=== PATIENT | female | born 1940 | race American Indian/Alaskan Native ===

== ENCOUNTER 2017-11-13 13:29 | Outpatient (CLI) | payer MEDICARE ==
[2017-11-13 15:23] LABS: Calcium 9.6 mg/dL (8.4-10.2); Uric Acid 7.4 mg/dL (3.5-7.6)
== END 2017-11-13 13:30 | disposition home or self-care (01) ==
LOC: LAB 13:29
DX: R94.4 Abnormal results of kidney function studies (principal)
CPT/HCPCS: 36415; 80048; 82040; 84100; 84550

== ENCOUNTER 2018-07-17 11:39 | Outpatient (CLI) | payer MEDICARE ==
[2018-07-17 12:05] LABS: Hematocrit 38.1 % (30.3-42.9); Hemoglobin 12.6 gm/dl (10.1-14.3); Mean Corpuscular HGB Conc 33 % (30-34); Mean Corpuscular Volume 89 fl (79-97); Platelet Count 211 K/mm3 (140-440); Red Blood Count 4.27 M/mm3 (3.65-5.03)
[2018-07-17 12:25] LABS: Calcium 9.9 mg/dL (8.4-10.2)
[2018-07-17 12:55] LABS: Creatinine,Urine 65.2 mg/dL (0.1-20.0); Microalbumin/Creatinine Ratio 18.4 ug/mg
[2018-07-17 12:57] LABS: Bilirubin,Urine NEG (Negative); Blood,Urine NEG (Negative); Color,Urine Yellow (Yellow); Protein,Urine <15 mg/dL mg/dL (Negative); Urobilinogen,Urine < 2.0 mg/dL (<2.0)
== END 2018-07-17 11:40 | disposition home or self-care (01) ==
LOC: LAB 11:39
PROVIDERS: ATTEND Internal Medicine Nephrology
DX: R94.4 Abnormal results of kidney function studies (principal); I10 Essential (primary) hypertension; I42.9 Cardiomyopathy, unspecified; R60.0 Localized edema; Z79.4 Long term (current) use of insulin
CPT/HCPCS: 36415; 80048; 81001; 82040; 82043; 84100; 85027

== ENCOUNTER 2018-11-27 10:31 | Outpatient (CLI) | payer MEDICARE ==
[2018-11-27 11:01] LABS: Hematocrit 36.8 % (30.3-42.9); Hemoglobin 12.1 gm/dl (10.1-14.3); Mean Corpuscular HGB Conc 33 % (30-34); Mean Corpuscular Volume 90 fl (79-97); Platelet Count 216 K/mm3 (140-440); Red Blood Count 4.09 M/mm3 (3.65-5.03); Red Cell Distribution Width 13.2 % (13.2-15.2)
[2018-11-27 11:23] LABS: Calcium 9.5 mg/dL (8.4-10.2)
[2018-11-27 17:01] LABS: Creatinine,Urine 47.7 mg/dL (0.1-20.0); Protein/Creatinine Ratio,Urine 0.21
== END 2018-11-27 10:32 | disposition home or self-care (01) ==
LOC: LAB 10:31
PROVIDERS: ATTEND Internal Medicine Nephrology
DX: I12.9 Hypertensive chronic kidney disease with stage 1 through stage 4 chronic kidney disease, or unspecified chronic kidney disease (principal); E11.22 Type 2 diabetes mellitus with diabetic chronic kidney disease; N18.3 Chronic kidney disease, stage 3 (moderate); R60.0 Localized edema
CPT/HCPCS: 36415; 80048; 82040; 82570; 84100; 84156; 85027

== ENCOUNTER 2018-12-18 10:51 | Outpatient (CLI) | payer MEDICARE ==
[2018-12-18 11:36] LABS: Albumin 3.8 g/dL (3.9-5); Calcium 9.2 mg/dL (8.4-10.2)
== END 2018-12-18 10:52 | disposition home or self-care (01) ==
LOC: LAB 10:51
PROVIDERS: ATTEND Internal Medicine Nephrology
DX: I12.9 Hypertensive chronic kidney disease with stage 1 through stage 4 chronic kidney disease, or unspecified chronic kidney disease (principal); E11.22 Type 2 diabetes mellitus with diabetic chronic kidney disease; N18.3 Chronic kidney disease, stage 3 (moderate); R60.0 Localized edema
CPT/HCPCS: 36415; 80048; 82040; 84100

== ENCOUNTER 2019-04-27 11:45 | Outpatient (CLI) | payer MEDICARE ==
[2019-04-27 12:22] LABS: Hematocrit 37.8 % (30.3-42.9); Hemoglobin 12.3 gm/dl (10.1-14.3); Mean Corpuscular HGB Conc 33 % (30-34); Mean Corpuscular Volume 90 fl (79-97); Platelet Count 225 K/mm3 (140-440); Red Blood Count 4.22 M/mm3 (3.65-5.03); Red Cell Distribution Width 13.1 % (13.2-15.2)
[2019-04-27 12:51] LABS: Albumin 4.1 g/dL (3.9-5); Calcium 9.9 mg/dL (8.4-10.2)
[2019-04-27 13:31] LABS: Bacteria,Urine 3+ /HPF (Negative); Bilirubin,Urine NEG (Negative); Blood,Urine NEG (Negative); Color,Urine Straw (Yellow); Protein,Urine <15 mg/dL mg/dL (Negative); RBC,Urine < 1.0 /HPF (0.0-6.0); Urobilinogen,Urine < 2.0 mg/dL (<2.0)
[2019-04-27 21:37] LABS: Creatinine,Urine 29.5 mg/dL (0.1-20.0)
[2019-04-27 21:38] LABS: Microalbumin/Creatinine Ratio 40.6 ug/mg
== END 2019-04-27 11:46 | disposition home or self-care (01) ==
LOC: LAB 11:45
PROVIDERS: ATTEND Internal Medicine Nephrology
DX: I12.9 Hypertensive chronic kidney disease with stage 1 through stage 4 chronic kidney disease, or unspecified chronic kidney disease (principal); N18.3 Chronic kidney disease, stage 3 (moderate); E11.22 Type 2 diabetes mellitus with diabetic chronic kidney disease; R60.0 Localized edema
CPT/HCPCS: 36415; 80048; 81001; 82040; 82043; 84100; 85027

== ENCOUNTER 2019-08-06 13:34 | Outpatient (CLI) | payer MEDICARE, OTHER ==
[2019-08-06 14:06] LABS: Hematocrit 35.1 % (30.3-42.9); Hemoglobin 11.5 gm/dl (10.1-14.3)
[2019-08-06 14:28] LABS: Albumin 3.9 g/dL (3.9-5); Calcium 9.6 mg/dL (8.4-10.2)
[2019-08-06 15:27] LABS: Bacteria,Urine 1+ /HPF (Negative); Bilirubin,Urine NEG (Negative); Blood,Urine NEG (Negative); Color,Urine Straw (Yellow); Hyaline Casts,Urine 3 /LPF; Protein,Urine <15 mg/dL mg/dL (Negative); RBC,Urine < 1.0 /HPF (0.0-6.0); Urobilinogen,Urine < 2.0 mg/dL (<2.0)
[2019-08-06 15:36] LABS: Protein/Creatinine Ratio,Urine 0.15
== END 2019-08-06 13:35 | disposition home or self-care (01) ==
LOC: LAB 13:34
PROVIDERS: ATTEND Internal Medicine Nephrology
DX: N18.3 Chronic kidney disease, stage 3 (moderate) (principal)
CPT/HCPCS: 36415; 80048; 81001; 82040; 82570; 84100; 84156; 85014; 85018